=== PATIENT | female | born 1990 | race Two or more races ===

== ENCOUNTER 2024-09-30 12:16 | Emergency (ER) | payer OTHER ==
[~2024-09-30] VITALS: Ht 152.4 cm; Wt 54.4 kg
[2024-09-30] MEDS ORDERED: FAMOtidine 10 MG/ML (4ML VIAL) IV ONE (13:15)
[2024-09-30] MEDS ORDERED: MEPERIDINE HCL/PF 50 MG/ML VIAL IM ONE (13:15)
[2024-09-30] MEDS ORDERED: FAMOTIDINE/PF 20 MG/2 ML VIAL ONE (13:28)
[2024-09-30] MEDS ORDERED: KETOROLAC TROMETHAMINE 60 MG VIAL IM ONE ×2 (14:15→14:25)
[2024-09-30 14:18] LABS: HEMATOCRIT 38.7 % (36.0-45.00); MEAN CELL VOLUME 88.1 fL (80.00-100.00); MEAN CORPUSCULAR HEMOGLOBIN 29.6 pg (27.00-32.0); MEAN CORPUSCULAR HGB CONC 33.6 g/dl (32.0-36.0); PLATELET COUNT 329 K/uL (150-450)
[2024-09-30 14:36] LABS: INR 1.15; PARTIAL THROMBOPLASTIN TIME 28.8 SECONDS (22.0-34.0); PROTHROMBIN TIME 12.4 SECONDS (9.0-11.5)
[2024-09-30 15:31] LABS: ALBUMIN 3.9 gm/dL (3.4-5.0); ALKALINE PHOSPHATASE 61 U/L (50-136); ALT/SGPT 15 U/L (12-78); ANION GAP 9 (10.0-20.0); AST/SGOT 15 U/L (15-37); BILIRUBIN TOTAL 0.56 mg/dL (0.3-1.2); BLOOD UREA NITROGEN 12 mg/dL (7-18); BUN CREA RATIO 18 (7.0-25.0); CALCIUM 9.5 mg/dL (8.5-10.1); CARBON DIOXIDE 27 mEq/L (21-32); CHLORIDE 107 mmol/L (98-107); CREATININE SERUM 0.66 mg/dL (0.55-1.02); GFR 101.91; GLUCOSE FASTING 66 mg/dL (65-100); OSMOLALITY SERUM 275 MOSM/KG (275-295); POTASSIUM 4.26 mEq/L (3.5-5.1); SODIUM 139 mmol/L (136-145); TOTAL PROTEIN 7.9 gm/dL (6.4-8.2)
[2024-09-30 15:32] LABS: HCG QUANTITATIVE < 1 mUI/mL (1-3)
[2024-09-30 15:54] LABS: PH,URINE 5.5 (5.0-8.0); URINE APPEARANCE Clear; URINE BILIRRUBIN Negative (NEGATIVE); URINE BLOOD NHT; URINE COLOR Yellow; URINE GLUCOSE Negative (NEGATIVE); URINE KETONE 15 (NEGATIVE); URINE LEUKOCYTE Negative; URINE NITRATE Negative; URINE PROTEIN Negative (NEGATIVE); URINE UROBILINOGEN 0.2 E.U./dl
[2024-09-30 15:58] LABS: URINE BACTERIA 762.3 uL (0.0-1933); URINE EPITHELIAL CELLS 43.6 uL (0.0-38.8); URINE RBC 19.4 uL (0.0-20.8); URINE WBC 8.7 uL (0.0-23.2)
[2024-09-30 16:00] LABS: URINE CAST 0.14 uL (0.0-1.40)
== END 2024-09-30 19:59 | disposition home or self-care (01) ==
LOC: ER 12:18
PROVIDERS: General Practice
DX: R10.2 Pelvic and perineal pain (principal); R18.8 Other ascites